=== PATIENT | female | born 1965 | race Caucasian/White ===

== ENCOUNTER 2016-09-15 16:12 | Inpatient (IN) | payer BC ==
[~2016-09-15] VITALS: Ht 160 cm; Wt 49.5 kg
[~2016-09-15 16:12] MED LIST: NOHOMEMEDS
[2016-09-15 16:36] LABS: POINT-OF-CARE METER ID UU13113778
[2016-09-15] MEDS ORDERED: ACTOS30 MG PO (16:40)
[2016-09-15] MEDS ORDERED: DAILY VALUE1 EACH PO (16:40)
[2016-09-15] MEDS ORDERED: INVOKAMET 150-1 EACH PO (16:40)
[2016-09-15] MEDS ORDERED: JANUVIA100 MG PO (16:41)
[2016-09-15] MEDS ORDERED: LISINOPRIL2.5 MG PO (16:41)
[2016-09-15] MEDS ORDERED: RANITIDINE HCL150 M1 PO (16:41)
[2016-09-15] MEDS ORDERED: ATORVASTATIN CA20 MG PO (16:41)
[2016-09-15 17:05] LABS: HEMATOCRIT 45.9 % (36.0-46.0); MCH 35.1 PG (29.0-34.0); MCHC 33.1 G/DL (30.0-36.0); MEAN PLAT.VOLUME 11.3 uM^3 (9.5-12.4); PLATELET COUNT 316 K/uL (156-360); RBC DIS.WIDTH-CV 12.4 % (11.8-14.6); RBC DIS.WIDTH-SD 49.3 % (39-53); RED BLOOD COUNT 4.33 M/uL (3.80-5.20)
[2016-09-15 17:33] LABS: INFLUENZA A VIRAL ANTIGEN NEGATIVE; INFLUENZA B VIRAL ANTIGEN NEGATIVE
[2016-09-15 17:36] LABS: CHLORIDE 103 mEq/L (99-109); POTASSIUM 4.9 mEq/L (3.7-5.4); SODIUM 136 mEq/L (136-147)
[2016-09-15 17:38] LABS: GLUCOSE 183 mg/dL (70-99)
[2016-09-15 17:39] LABS: ANION GAP 27 MEQ/L (2-14)
[2016-09-15 17:42] LABS: GFR ESTIMATE (CALCULATED) 50 mL/min/; UREA NITROGEN (BUN) 23 mg/dL (9-23)
[2016-09-15 17:49] LABS: TROP-I INTERPRETATION NEGATIVE; TROPONIN-I < 0.01 ng/mL (0.0-0.30)
[2016-09-15 18:25] LABS: CARBOXY HGB 1.1 % (0-5); METHEMOGLOBIN 0.8 % (0-1.5); PO2 111 mm Hg (80-100)
[2016-09-15 18:27] LABS: pH 7.07 (7.35-7.45)
[2016-09-15 18:28] LABS: COMMENTS - BLOOD GASES C+; DEVICE RA; PCO2 < 19 mm Hg (35-45); SITE LB; TOTAL RESP RATE 24 resp/min
[2016-09-15] MEDS ORDERED: VITAMIN D31000 UNIT PO (18:40)
[2016-09-15 19:02] LABS: CREATINE KINASE 24 IU/L (1-294); TOTAL CK 24 IU/L (1-294)
[2016-09-15 22:08] LABS: TOTAL BILIRUBIN 0.2 mg/dL (0.0-1.0)
[2016-09-15 22:09] LABS: ALKALINE PHOSPHATASE 63 IU/L (3-129)
[2016-09-15 22:12] LABS: DIRECT BILIRUBIN 0.1 mg/dL (0.0-0.3)
[2016-09-15 22:13] LABS: LIPASE 66 U/L (1.0-51.0)
[2016-09-16] LABS: CHLORIDE 104 mEq/L (99-109)
[2016-09-16 00:01] LABS: SODIUM 134 mEq/L (136-147)
[2016-09-16 00:02] LABS: GLUCOSE 238 mg/dL (70-99)
[2016-09-16 00:04] LABS: ANION GAP 23 MEQ/L (2-14)
[2016-09-16 00:06] LABS: GFR ESTIMATE (CALCULATED) 46 mL/min/
[2016-09-16 00:07] LABS: UREA NITROGEN (BUN) 24 mg/dL (9-23)
[2016-09-16 00:10] LABS: TROP-I INTERPRETATION NEGATIVE; TROPONIN-I < 0.01 ng/mL (0.0-0.30)
[2016-09-16 00:11] LABS: POTASSIUM 3.9 mEq/L (3.7-5.4)
[2016-09-16 00:30] VITALS: BP 105/59
[2016-09-16 00:35] LABS: POINT-OF-CARE METER ID UU13113725
[2016-09-16 01:49] LABS: ADD MIUA? YES; BILIRUBIN NEGATIVE; BLOOD MODERATE; COLOR STRAW ((YELLOW)); GLUCOSE (STRIP) >=500; KETONES 80; LEUKOCYTES NEGATIVE; NITRITE NEGATIVE; PROTEIN (STRIP) 30; SPECIFIC GRAVITY 1.022 (1.000-1.030); UROBILINOGEN 0.2 MG/DL (0.2-1.0)
[2016-09-16 01:53] LABS: BACTERIA RARE /HPF; EPITHELIAL CELLS NONE SEEN /HPF; MUCUS TRACE /LPF; RED BLOOD CELLS 0-5 /HPF (0-5); WHITE BLOOD CELLS 20-30 /HPF (0-5)
[2016-09-16 04:53] VITALS: BP 99/57
[2016-09-16 04:59] LABS: HEMATOCRIT 38.7 % (36.0-46.0); MCH 34.2 PG (29.0-34.0); MCHC 32.6 G/DL (30.0-36.0); MCV 105.2 FL (83-99); MEAN PLAT.VOLUME 10.2 uM^3 (9.5-12.4); PLATELET COUNT 227 K/uL (156-360); RBC DIS.WIDTH-CV 12.3 % (11.8-14.6); RBC DIS.WIDTH-SD 48.4 % (39-53); RED BLOOD COUNT 3.68 M/uL (3.80-5.20); WHITE BLOOD COUNT 10.6 K/uL (4.1-10.2)
[2016-09-16 05:07] LABS: TROP-I INTERPRETATION NEGATIVE; TROPONIN-I < 0.01 ng/mL (0.0-0.30)
[2016-09-16 05:32] LABS: CHLORIDE 106 mEq/L (99-109); POTASSIUM 3.7 mEq/L (3.7-5.4); SODIUM 133 mEq/L (136-147)
[2016-09-16 05:33] LABS: GLUCOSE 218 mg/dL (70-99)
[2016-09-16 05:35] LABS: ANION GAP 19 MEQ/L (2-14)
[2016-09-16 05:37] LABS: GFR ESTIMATE (CALCULATED) 55 mL/min/
[2016-09-16 05:38] LABS: UREA NITROGEN (BUN) 20 mg/dL (9-23)
[2016-09-16 05:45] LABS: CHLORIDE 106 mEq/L (99-109); POTASSIUM 3.7 mEq/L (3.7-5.4); SODIUM 134 mEq/L (136-147)
[2016-09-16 05:47] LABS: GLUCOSE 216 mg/dL (70-99)
[2016-09-16 05:48] LABS: ANION GAP 20 MEQ/L (2-14)
[2016-09-16 05:50] LABS: POINT-OF-CARE METER ID UU13113725
[2016-09-16 05:51] LABS: GFR ESTIMATE (CALCULATED) 55 mL/min/; UREA NITROGEN (BUN) 20 mg/dL (9-23)
[2016-09-16 07:27] LABS: BASE EXCESS -17.5 mEq/L (-3 to +3); BICARBONATE 8.2 mEq/L (22-26); CARBOXY HGB 0.5 % (0-5); DEVICE RA; METHEMOGLOBIN 1.3 % (0-1.5); PCO2 20 mm Hg (35-45); PO2 109 mm Hg (80-100); SITE LR; TOTAL RESP RATE 10 resp/min; pH 7.22 (7.35-7.45)
[2016-09-16 07:28] LABS: COMMENTS - BLOOD GASES A+C+
[2016-09-16 08:01] VITALS: BP 98/55
[2016-09-16 10:13] LABS: Estimated Average Glucose 189 mg/dL (70-123); HEMOGLOBIN A1c (GLYCOHEMOGLOB) 8.2 % HGB (Below 5.7)
[2016-09-16 11:17] LABS: HEMATOCRIT 38.1 % (36.0-46.0); MCH 34.6 PG (29.0-34.0); MCHC 32.8 G/DL (30.0-36.0); MCV 105.5 FL (83-99); MEAN PLAT.VOLUME 10.2 uM^3 (9.5-12.4); PLATELET COUNT 221 K/uL (156-360); RBC DIS.WIDTH-CV 12.5 % (11.8-14.6); RBC DIS.WIDTH-SD 48.9 % (39-53); RED BLOOD COUNT 3.61 M/uL (3.80-5.20); WHITE BLOOD COUNT 11.9 K/uL (4.1-10.2)
[2016-09-16 11:45] LABS: ALKALINE PHOSPHATASE 47 IU/L (3-129); ANION GAP 21 MEQ/L (2-14); CHLORIDE 102 MEQ/L (99-109); GFR ESTIMATE (CALCULATED) > 59 mL/min/; GLUCOSE 210 mg/dL (70-99); POTASSIUM 3.6 MEQ/L (3.7-5.4); SAMPLE HEMOLYSIS CHECK 0; SAMPLE ICTERIC CHECK 0; SAMPLE LIPEMIA CHECK 0; SODIUM 134 MEQ/L (136-147); TOTAL BILIRUBIN 0.4 MG/DL (0.0-1.0); UREA NITROGEN (BUN) 15 mg/dL (9-23)
[2016-09-16 13:39] VITALS: BP 104/53
[2016-09-16 15:43] VITALS: BP 98/55
[2016-09-16 17:07] LABS: POINT-OF-CARE USER ID ENVKC36
[2016-09-16 19:55] LABS: ANION GAP 16 MEQ/L (2-14); CHLORIDE 105 MEQ/L (99-109); GFR ESTIMATE (CALCULATED) > 59 mL/min/; GLUCOSE 246 mg/dL (70-99); POTASSIUM 3.6 MEQ/L (3.7-5.4); SAMPLE HEMOLYSIS CHECK 0; SAMPLE ICTERIC CHECK 0; SAMPLE LIPEMIA CHECK 0; SODIUM 134 MEQ/L (136-147); UREA NITROGEN (BUN) 12 mg/dL (9-23)
[2016-09-16 20:34] VITALS: BP 100/61
[2016-09-17] VITALS (7 sets, daily range): BP systolic 100–120; BP diastolic 55–65
[2016-09-17 06:23] LABS: ALKALINE PHOSPHATASE 52 IU/L (3-129); ANION GAP 21 MEQ/L (2-14); CHLORIDE 108 MEQ/L (99-109); GFR ESTIMATE (CALCULATED) > 59 mL/min/; GLUCOSE 165 mg/dL (70-99); POTASSIUM 3.2 MEQ/L (3.7-5.4); SAMPLE HEMOLYSIS CHECK 0; SAMPLE ICTERIC CHECK 0; SAMPLE LIPEMIA CHECK 0; SODIUM 137 MEQ/L (136-147); TOTAL BILIRUBIN 0.4 MG/DL (0.0-1.0); UREA NITROGEN (BUN) 10 mg/dL (9-23)
[2016-09-17 06:30] LABS: HEMATOCRIT 36.5 % (36.0-46.0); MCH 34.8 PG (29.0-34.0); MCHC 33.2 G/DL (30.0-36.0); MCV 104.9 FL (83-99); MEAN PLAT.VOLUME 10.6 uM^3 (9.5-12.4); PLATELET COUNT 216 K/uL (156-360); RBC DIS.WIDTH-CV 12.6 % (11.8-14.6); RBC DIS.WIDTH-SD 48.8 % (39-53); RED BLOOD COUNT 3.48 M/uL (3.80-5.20); WHITE BLOOD COUNT 10.2 K/uL (4.1-10.2)
[2016-09-17 08:07] LABS: POINT-OF-CARE USER ID ENVKC36
[2016-09-17 11:22] LABS: POINT-OF-CARE METER ID UU14174216
[2016-09-17 16:41] LABS: ANION GAP 22 MEQ/L (2-14); CHLORIDE 111 MEQ/L (99-109); GFR ESTIMATE (CALCULATED) > 59 mL/min/; GLUCOSE 202 mg/dL (70-99); POTASSIUM 3.5 MEQ/L (3.7-5.4); SAMPLE HEMOLYSIS CHECK 0; SAMPLE ICTERIC CHECK 0; SAMPLE LIPEMIA CHECK 0; SODIUM 140 MEQ/L (136-147); UREA NITROGEN (BUN) 8 mg/dL (9-23)
[2016-09-17 16:45] LABS: POINT-OF-CARE METER ID UU14174216
[2016-09-18 03:35] VITALS: BP 113/68
[2016-09-18 05:52] LABS: ANION GAP 18 MEQ/L (2-14); CHLORIDE 112 MEQ/L (99-109); GFR ESTIMATE (CALCULATED) > 59 mL/min/; GLUCOSE 253 mg/dL (70-99); POTASSIUM 3.4 MEQ/L (3.7-5.4); SAMPLE HEMOLYSIS CHECK 0; SAMPLE ICTERIC CHECK 0; SAMPLE LIPEMIA CHECK 0; SODIUM 142 MEQ/L (136-147); UREA NITROGEN (BUN) 9 mg/dL (9-23)
[2016-09-18 07:24] VITALS: BP 101/57
[2016-09-18 07:43] LABS: POINT-OF-CARE METER ID UU14174216
[2016-09-18 11:22] LABS: POINT-OF-CARE METER ID UU14174216
[2016-09-18 11:28] VITALS: BP 112/69
[2016-09-18 14:33] LABS: MAGNESIUM 2.1 mg/dl (1.3-2.7)
[2016-09-18 15:58] VITALS: BP 114/74
[2016-09-18 15:59] LABS: POINT-OF-CARE METER ID UU14174216
[2016-09-18 19:34] VITALS: BP 117/75
[2016-09-18 23:28] VITALS: BP 123/73
[2016-09-19 04:38] VITALS: BP 125/75
[2016-09-19 05:29] LABS: CHLORIDE 112 mEq/L (99-109); SODIUM 146 mEq/L (136-147)
[2016-09-19 05:30] LABS: MAGNESIUM 1.7 mg/dL (1.3-2.7)
[2016-09-19 05:32] LABS: GLUCOSE 155 mg/dL (70-99)
[2016-09-19 05:33] LABS: ANION GAP 9 MEQ/L (2-14)
[2016-09-19 05:35] LABS: GFR ESTIMATE (CALCULATED) > 59 mL/min/
[2016-09-19 05:36] LABS: UREA NITROGEN (BUN) 11 mg/dL (9-23)
[2016-09-19 07:12] VITALS: BP 101/62
[2016-09-19 08:41] LABS: BASOPHIL COUNT 0.1 K/uL (0-0.1); EOSINOPHIL (%) 2.6 % (0-5); EOSINOPHIL COUNT 0.2 K/uL (0-0.3); HEMATOCRIT 32.3 % (36.0-46.0); IMMATURE GRANULOCYTE (%) 1.8 % (0.0-0.7); IMMATURE GRANULOCYTE COUNT 0.1 K/uL; INSTRUMENT ABS NEUTROPHIL CT 3.9 K/uL; LYMPHOCYTE COUNT 1.7 K/uL (1.0-2.8); MCH 34.4 PG (29.0-34.0); MCHC 34.7 G/DL (30.0-36.0); MEAN PLAT.VOLUME 10.4 uM^3 (9.5-12.4); MONOCYTE (%) 19.2 % (3-12); MONOCYTE COUNT 1.4 K/uL (0-0.8); NEUTROPHIL (%) 52.5 % (45-76); NEUTROPHIL COUNT 3.9 K/uL (1.8-6.4); PLATELET COUNT 259 K/uL (156-360); RBC DIS.WIDTH-CV 12.4 % (11.8-14.6); RBC DIS.WIDTH-SD 45.5 % (39-53); RED BLOOD COUNT 3.26 M/uL (3.80-5.20); WHITE BLOOD COUNT 7.4 K/uL (4.1-10.2)
[2016-09-19 08:45] LABS: MCV 99.1 FL (83-99)
[2016-09-19 11:05] VITALS: BP 116/65
[2016-09-19 11:42] LABS: POINT-OF-CARE METER ID UU14174216
[2016-09-19 15:52] VITALS: BP 115/66
[2016-09-19 19:10] VITALS: BP 124/85
[2016-09-19 23:42] VITALS: BP 125/87
[2016-09-20 07:14] LABS: HEMATOCRIT 32.1 % (36.0-46.0); MCH 34.4 PG (29.0-34.0); MCHC 34.3 G/DL (30.0-36.0); MCV 100.3 FL (83-99); MEAN PLAT.VOLUME 10.3 uM^3 (9.5-12.4); PLATELET COUNT 258 K/uL (156-360); RBC DIS.WIDTH-CV 12.5 % (11.8-14.6); RBC DIS.WIDTH-SD 45.9 % (39-53); WHITE BLOOD COUNT 5.3 K/uL (4.1-10.2)
[2016-09-20 07:28] VITALS: BP 105/67
[2016-09-20 07:38] LABS: ANION GAP 8 MEQ/L (2-14); CHLORIDE 108 MEQ/L (99-109); GFR ESTIMATE (CALCULATED) > 59 mL/min/; SAMPLE HEMOLYSIS CHECK 0; SAMPLE ICTERIC CHECK 0; SAMPLE LIPEMIA CHECK 0; SODIUM 148 MEQ/L (136-147); UREA NITROGEN (BUN) 9 mg/dL (9-23)
[2016-09-20 07:40] LABS: GLUCOSE 106 mg/dL (70-99); POTASSIUM 3.7 MEQ/L (3.7-5.4)
[2016-09-20 08:00] LABS: POINT-OF-CARE METER ID UU14174216
[2016-09-20] MEDS ORDERED: NICOTINE PATCH1 EAC2 TD (10:55)
[2016-09-20] MEDS ORDERED: MYCOSTATIN 100,60 ML PO (10:55)
[2016-09-20] MEDS ORDERED: PHOSPHA250 MG PO (10:59)
[2016-09-20] MEDS ORDERED: POLYETHYLENE GL17 GM PO (10:59)
[2016-09-20 11:15] VITALS: BP 109/63
== END 2016-09-20 14:00 | disposition home health service (06) | DRG 190 ==
LOC: EME 16:12 → 5EAST 21:13 → 4EAST 21:13 → EDOF 21:13 → 5EAST 23:53 → 4EAST 09-16 13:31
PROVIDERS: Emergency Medicine; Hospitalist; Internal Medicine; Internal Medicine Nephrology; Nurse Practitioner Adult Health
DX: J44.0 Chronic obstructive pulmonary disease with (acute) lower respiratory infection (principal); J18.9 Pneumonia, unspecified organism; E87.2 Acidosis; N28.89 Other specified disorders of kidney and ureter; F10.20 Alcohol dependence, uncomplicated; I10 Essential (primary) hypertension; E11.65 Type 2 diabetes mellitus with hyperglycemia; E78.5 Hyperlipidemia, unspecified; K21.9 Gastro-esophageal reflux disease without esophagitis; F17.200 Nicotine dependence, unspecified, uncomplicated; E87.6 Hypokalemia; E86.0 Dehydration; K20.9 Esophagitis, unspecified; R64 Cachexia
CPT/HCPCS: 36600; 71020; 71275; 74177; 76770; 80048; 80048 91; 80053; 80069; 80076; 81003; 82010; 82436; 82550 91; 82553; 82803; 82948; 83036; 83605; 83690; 83735; 83880; 83930; 83935; 84100; 84133; 84300; 84484; 85025; 85027; 87502; 93005; 99281; 99285; C9113; J0696; J1644; J1815; J2270; J2405; J3411; J3475; J3480; J7030; J7040; J7050; J7070

== ENCOUNTER → 2016-10-08 | Outpatient (CLI) | payer BC ==
[~2016-10-08] MED LIST changes: +ACTOS30 MG PO; +ATORVASTATIN CA20 MG PO; +DAILY VALUE1 EACH PO; +INVOKAMET 150-1 EACH PO; +JANUVIA100 MG PO; +LISINOPRIL2.5 MG PO; +MYCOSTATIN 100,60 ML PO; +NICOTINE PATCH1 EAC2 TD; +PHOSPHA250 MG PO; +POLYETHYLENE GL17 GM PO; +RANITIDINE HCL150 M1 PO; +RANITIDINE HCL150 MG PO; +TRESIBA FL100 UNIT/1 SC; +VITAMIN D31000 UNIT PO
[2016-10-08 10:11] LABS: POINT-OF-CARE METER ID UU14174212
[2016-10-08 10:33] LABS: INTER. NORMALIZED RATIO 1.1; PROTHROMBIN TIME 10.8 (9.2-11.2); PTT 27.1 (25-32)
[2016-10-08 11:04] LABS: POINT-OF-CARE METER ID UU14174212
[2016-10-08 13:17] LABS: POINT-OF-CARE METER ID UU13113819
== END | disposition home or self-care (01) ==
LOC: OPR 09:39 → EDSTATUS 10:00
PROVIDERS: Internal Medicine; Radiology Diagnostic Radiology
DX: N00.9 Acute nephritic syndrome with unspecified morphologic changes (principal); N03.9 Chronic nephritic syndrome with unspecified morphologic changes; E11.9 Type 2 diabetes mellitus without complications; K21.9 Gastro-esophageal reflux disease without esophagitis; R63.4 Abnormal weight loss; Z87.891 Personal history of nicotine dependence; Z79.899 Other long term (current) drug therapy; Z79.4 Long term (current) use of insulin
CPT/HCPCS: 77012; 82948; 85610; 85730; 88305; 88342 TC; J3010